=== PATIENT | male | born 1965 | race Caucasian/White ===

== ENCOUNTER 2021-07-18 12:19 | Inpatient (IN) ==
--- NOTE | 2021-07-18 13:05 | Emergency Department Note ---
Lower Extremity Injury HPI <Angeline Branham PA-C - Last Filed: 07/18/21 16:47> General Chief Complaint: Extremity Injury, Lower Stated Complaint: hip pain Time Seen by Provider: 07/18/21 12:38 Source: patient Mode of arrival: wheelchair History of Present Illness HPI Narrative: 55-year-old male presents from minor care for left hip pain after he fell on ice on Sunday. Had an x-ray of the left hip today that shows a left displaced femoral neck fracture. Patient has been walking on the hip for the last 3 days, but it became so painful today that he can no longer ambulate so came in for evaluation. Only medication tried for pain is his pregabalin, which he takes for chronic low back pain. Longtime smoker, 1 pack/day. Not on other medications. No other significant medical history. Last oral intake was 10 AM. Related Data Home Medications Medication Instructions Recorded Confirmed acetaminophen 500 mg tablet 500 mg PO Q6H PRN 04/23/20 07/18/21 (Tylenol Extra Strength) ibuprofen 200 mg capsule 200 mg PO Q6H PRN 04/23/20 07/18/21 Previous Rx's Medication Instructions Recorded pregabalin 150 mg capsule (Lyrica) 150 mg PO BID #180 cap 12/02/20 Allergies Allergy/AdvReac Type Severity Reaction Status Date / Time No Known Drug Allergies Allergy Verified 07/18/21 12:23 Review of Systems <Angeline Branham PA-C - Last Filed: 07/18/21 16:47> ROS ROS Narrative: Narrative: All systems ED: reviewed and negative except as stated. PFSH <Angeline Branham PA-C - Last Filed: 07/18/21 16:47> Narrative Patient History Narrative: Narrative: Medical/Surgical/Family History All Active Problems (Updated 07/18/21 @ 14:13 by Angeline Branham PA-C) Fracture of left hip (Acute) Left hip pain (Acute) Pain of left great toe (Acute) History of surgery (Chronic) Chronic pain (Chronic) Radiculopathy, lumbar region (Chronic) Radiculopathy, lumbosacral region (Chronic) Medical History Chronic pain Pain of left great toe Radiculopathy, lumbar region Radiculopathy, lumbosacral region Surgical History History of surgery TF MANDY #3 Lt. S2 w/o sed 02/05/19 TF MANDY #2 Lt. S1 w/o sed 01/08/2019 LESI #1 L5-S1 w/o sed 12/24/2018 Family History Other No pertinent family history Social History Smoking Status: Current every day smoker Exam <Angeline Branham PA-C - Last Filed: 07/18/21 16:47> Narrative Narrative: General: AOx3, NAD, nontoxic appearing. Pleasant and conversant. HEENT: PERRL, EOMI, normocephalic. Moist mucous membranes. Chest: Symmetric Respiratory: Lungs clear to auscultation bilaterally. No respiratory distress. Unlabored breathing. Heart: Regular rate and rhythm, no murmurs/clicks/rubs. Abdomen: Non-tender, Non distended Extremities: Warm and well perfused. No edema. DP 2+ bilaterally. No venous stasis. Neuro: No focal deficits. Cranial nerves II-XII grossly normal. Moving all fours spontaneously. He is sensate throughout the bilateral lower extremities in all nerve distributions. Skin: Warm dry, no rashes or lesions, no cyanosis. Psych: Normal mood and affect Heme/Lymph: No abnormal bruising Course <Angeline Branham PA-C - Last Filed: 07/18/21 16:47> Course Course Narrative: 55-year-old male presents with a displaced femoral neck fracture Reevaluation(s) Reevaluation #1: CBC, Chem-8, Covid swab Reevaluation #2: Covid swab was positive. Patient is asymptomatic. Not hypoxic satting at 98% on room air. Vital Signs Vital signs: Vital Signs Temperature 99.0 F 07/18/21 12:20 Pulse Rate 94 H 07/18/21 12:20 Respiratory Rate 16 07/18/21 12:20 Blood Pressure 143/84 07/18/21 12:20 Pulse Oximetry (%) 99 07/18/21 12:20 Temperature 98.3 F 07/19/21 03:36 Pulse Rate 72 07/19/21 03:36 Respiratory Rate 16 07/19/21 03:36 Blood Pressure 123/77 07/19/21 03:36 Pulse Oximetry (%) 97 07/19/21 03:36 MDM <Angeline Branham PA-C - Last Filed: 07/18/21 16:47> MDM Narrative Medical decision making narrative: Left femoral neck fracture COVID-19 infection I discussed the case with Dr. Yañez who will take the patient for surgery this afternoon. Patient will need to be admitted under Covid precautions given that h is screening was positive today. Disposition will be inpatient admission. Lab Data Result diagrams: 07/18/21 13:12 Labs: Lab Results 07/18/21 07/18/21 Range/Units 13:12 13:12 WBC 11.7 H (4.5-11.0) K/mcL RBC 3.36 L (4.63-6.08) M/mcL Hgb 12.2 L (13.7-17.5) g/dL Hct 35.1 L (40.1-51.0) % POC Hct 36 L (41-55) % MCV 104.5 H (80.0-100.0) fL MCH 36.3 H (26.0-34.0) pg MCHC 34.8 (31.0-36.0) g/dL RDW 12.8 (11.5-14.5) % Plt Count 218 (140-440) K/mcL MPV 10.1 (7.4-10.4) fL Neut % (Auto) 76.5 (38.0-78.0) % Lymph % (Auto) 13.2 L (15.5-49.0) % [place] % (Auto) 9.1 (1.0-12.0) % Eos % (Auto) 0.9 (0.0-7.0) % Baso % (Auto) 0.3 (0.0-2.0) % Lymph # (Auto) 1.54 (1.50-4.80) K/mcL Oldham # (Auto) 1.06 H (0.10-0.90) K/mcL Eos # (Auto) 0.10 (0.00-0.70) K/mcL Baso # (Auto) 0.03 (0.00-0.30) K/mcL Absolute Neutrophils 8.94 H (1.80-8.00) K/mcL POC Sodium 136 (133-145) mEq/L POC Potassium 3.4 (3.3-5.1) mEql/L POC Chloride 102 (96-108) mEq/L POC Total CO2 21 L (22-30) mmol/L POC BUN 7 (6-20) mg/dL POC Creatinine 0.5 L (0.6-1.2) mg/dL POC Glucose 89 (70-105) mg/dL POC WB Ioniz Calcium 1.11 L (1.16-1.32) mmEq/L ED POC Tests ED POC Tests: PRIYA - Influenza A Negative PRIYA - Influenza B Negative PRIYA - SARS Antigen Positive Discharge Plan Patient/Caregiver Discharge Instructions Pt seen by AIRCRAFT LOAD CONTROLLER/PA only: Yes Clinical Impression: Fracture of left hip Patient Disposition: Xfer As Inpt ([facility]) Discharge Date/Time: 07/18/21 15:38
[2021-07-18] MEDS ORDERED: KETOROLAC 30 MG/ML VIAL IV ONE (13:09)
[2021-07-18] MEDS ORDERED: ACETAMINOPHEN 1,000 MG/100 ML BAG IV ONE (13:09)
[2021-07-18 13:23] LABS: POC Blood Urea Nitrogen 7 mg/dL (6-20); POC CO2 21 mmol/L (22-30); POC Calcium, Ionized 1.11 mmEq/L (1.16-1.32); POC Chloride 102 mEq/L (96-108); POC Creatinine 0.5 mg/dL (0.6-1.2); POC Glucose, Random 89 mg/dL (70-105); POC Hematocrit 36 % (41-55); POC Potassium 3.4 mEql/L (3.3-5.1); POC Sodium 136 mEq/L (133-145)
[2021-07-18] MEDS ORDERED: METHOCARBAMOL 1,000 MG/10 ML VIAL IV PRN (14:39)
[2021-07-18] MEDS ORDERED: FLEETS ADULT ENEMA PR PRN (14:39)
[2021-07-18] MEDS ORDERED: POLYETHYLENE GLYCOL 3350 17 GM PACKET PO PRN (14:39)
[2021-07-18] MEDS ORDERED: BENZOCAINE/MENTHOL 1 LOZENGE PO PRN (14:39)
[2021-07-18] MEDS ORDERED: BISACODYL 10 MG SUPP.RECT PR PRN (14:39)
[2021-07-18] MEDS ORDERED: morphine 4 MG/ML VIAL IV PRN (14:39)
[2021-07-18] MEDS ORDERED: MAGNESIUM HYDROXIDE 30 ML ORAL.SUSP PO PRN (14:39)
--- NOTE | 2021-07-18 15:22 | History and Physical Report ---
DATE OF ADMISSION: 07/18/2021 REASON FOR CONSULTATION: Left hip fracture. CONSULTING PROVIDER: [facility] ER provider, Angeline Ariza NP. HISTORY OF PRESENT ILLNESS: Patient is a 55-year-old male who fell on his porch on Sunday. He had significant hip pain at that time. However, he was able to modify activity until Sunday when he returned to work. He had significant increase in pain at that time and this morning he has been unable to ambulate and presented to urgent care for evaluation. He was found to have a hip fracture and was transferred to [facility] ER for further evaluation and treatment. Orthopedics was consulted. He only complains of left hip pain. 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 PAST SURGICAL HISTORY: Unremarkable. PAST MEDICAL HISTORY: None. ALLERGIES: No known drug allergies. MEDICATIONS: He takes gabapentin on a daily basis for the radiculopathy. SOCIAL HISTORY: The patient is a tobacco user, approximately one-pack per day. Otherwise, none listed. He does reside with his girlfriend. REVIEW OF SYSTEMS: A 10-point review of systems is otherwise negative other than mentioned above. PHYSICAL EXAMINATION: VITALS: Patient is afebrile with a temperature of 99. Blood pressure is 130s over 80s. He is satting in the upper 90s on room air. Heart rate in the 80s. GENERAL: Patient is alert and oriented. He acts appropriately in no acute distress. EXTREMITIES: Bilateral upper extremities are atraumatic. Right lower extremity- atraumatic Left left lower extremity skin is intact with some tenderness over the lateral aspect of the hip itself. The foot is a bit shortened; however, minimal. He does not have significant external rotation. Range of motion deferred secondary to obvious fracture. No joint effusion about the knee itself. Foot is warm and well perfused with sensation intact. IMAGING: He has plain radiographs demonstrating a displaced femoral neck fracture. LABORATORY DATA: Glucose 89, creatinine 0.5. Hematocrit is 36 with a pending CBC. He also has a COVID-19 test which is positive. This was the quick test. Additional study pending. ASSESSMENT AND PLAN: This is a 55-year-old male with a tobacco use history with a left displaced femoral neck fracture, subacute in nature. I discussed the diagnosis with him and discussed treatment options. Given the chronicity of it, I do think that he is a high risk for AVN of the femoral head. The tobacco use does increasing his risk as well. I had initially discussed that if this did occur today, I would consider operative intervention with open reduciton internal fixaiton since if healed would likely provide the best oucome. However, given that this is several days old now, I think the least risky surgery would be the total hip arthroplasty. I discussed what this entails and the postoperative expectation and recovery process. I discussed the option of open reduction and internal fixation and the risks associated with that. After further discussion, he is okay to proceed with total hip arthroplasty. I discussed the potential for leg length difference, dislocations as well as paresthesias to the extremity which he already has at baseline. These are in addition to risk of infection, bleeding, blood clots, cardiopulmonary complications as well. He understands and agrees to proceed. The plan will be for a left anterior total hip arthroplasty. He will be admitted until surgery which looks to be planned for tomorrow. NPO at midnight. DLDina:avani Job ID: [id number] Doc ID: [id number] Ingris Yañez MD MTDD
--- NOTE | 2021-07-18 15:30 | XRay Report ---
HISTORY: Tested positive for COVID FINDINGS: Lungs are clear and well-expanded, without evidence of pneumonia. There is no adenopathy or pleural effusion. The heart size, mediastinum and liliana are normal. IMPRESSION: Normal exam Interpreted and Authenticated by: Steve Ureña 07/18/21
[2021-07-18 15:33] LABS: Basophils # (Auto) 0.03 K/mcL (0.00-0.30); Basophils % (Auto) 0.3 % (0.0-2.0); Eosinophils % (Auto) 0.9 % (0.0-7.0); Hematocrit 35.1 % (40.1-51.0); Hemoglobin 12.2 g/dL (13.7-17.5); Lymphocytes # (Auto) 1.54 K/mcL (1.50-4.80); Lymphocytes % (Auto) 13.2 % (15.5-49.0); Mean Cell Volume 104.5 fL (80.0-100.0); Mean Corpuscular HGB Conc 34.8 g/dL (31.0-36.0); Mean Platelet Volume 10.1 fL (7.4-10.4); Monocytes # (Auto) 1.06 K/mcL (0.10-0.90); Monocytes % (Auto) 9.1 % (1.0-12.0); Neutrophils % (Auto) 76.5 % (38.0-78.0); Platelet Count 218 K/mcL (140-440); RBC 3.36 M/mcL (4.63-6.08); Red Cell Distribution Width 12.8 % (11.5-14.5); WBC 11.7 K/mcL (4.5-11.0)
[2021-07-18] MEDS: oxyCODONE/APAP 5/325MG TABLET PO PRN ×3 (16:13→23:40)
[2021-07-18] MEDS: PREGABALIN 150 MG CAPSULE PO SCH (19:27)
[2021-07-18] MEDS: DOCUSATE SODIUM 100 MG CAPSULE PO SCH (19:27)
[2021-07-18] MEDS ORDERED: ENOXAPARIN 40 MG/0.4 ML SYRINGE SQ ONE (21:19)
[2021-07-18] MEDS: DEXTROSE 5%-1/2NS 1,000 ML IV SCH (23:30)
[2021-07-18] MEDS: 0.9 % SODIUM CHLORIDE 10 ML SYRINGE IV SCH (23:30)
[2021-07-19] MEDS: 0.9 % SODIUM CHLORIDE 10 ML SYRINGE IV SCH ×3 (04:04→21:40)
[2021-07-19] MEDS ORDERED: ceFAZolin 2 GM in DEXTROSE 5% IN WATER 50 ML IV SCH (06:00)
[2021-07-19] MEDS: DOCUSATE SODIUM 100 MG CAPSULE PO SCH ×2 (09:37→21:37)
[2021-07-19] MEDS ORDERED: FLU VACC QS2021-22(6MOS UP)/PF 60 MCG/0.5 ML SYRINGE IM ONE (10:00)
[2021-07-19] MEDS: DEXTROSE 5%-1/2NS 1,000 ML IV SCH ×2 (10:41→22:11)
[2021-07-19] MEDS ORDERED: SUGAMMADEX SODIUM 200 MG/2 ML VIAL IV ONE (14:25)
[2021-07-19] MEDS ORDERED: TRANEXAMIC ACID 1,000 MG/10 ML VIAL ONE (14:25)
[2021-07-19] MEDS ORDERED: fentaNYL 250 MCG/5 ML VIAL IV ONE (14:25)
[2021-07-19] MEDS ORDERED: DEXAMETHASONE 10 MG/ML VIAL ONE (14:25)
[2021-07-19] MEDS ORDERED: ONDANSETRON 4 MG/2 ML VIAL ONE (14:25)
[2021-07-19] MEDS ORDERED: LIDOCAINE W/EPI 2% 20 ML VIAL ONE (14:25)
[2021-07-19] MEDS ORDERED: PROPOFOL 200 MG/20 ML VIAL IV ONE (14:25)
[2021-07-19] MEDS ORDERED: ROPIVACAINE HCL/PF 20 ML VIAL IJ ONE (14:25)
[2021-07-19] MEDS ORDERED: MAGNESIUM SULFATE 2 GM/50 ML BAG IV ONE (14:25)
[2021-07-19] MEDS ORDERED: LIDOCAINE HCL/PF 100 MG/5 ML SYRINGE IV ONE (14:25)
[2021-07-19] MEDS ORDERED: MIDAZOLAM 2 MG/2 ML VIAL ONE (14:25)
[2021-07-19] MEDS ORDERED: KETAMINE 50 MG/ML Syringe (ANEST) IV ONE (14:25)
[2021-07-19] MEDS ORDERED: ROCURONIUM 10 MG/ML ML IV ONE (14:25)
[2021-07-19] MEDS ORDERED: VANCOMYCIN 1 GM VIAL TOPICAL ONE (15:15)
[2021-07-19] MEDS ORDERED: HYDROmorphone 0.5 MG/0.5 ML SYRINGE IV PRN (16:48)
[2021-07-19] MEDS ORDERED: MEPERIDINE 50 MG/ML VIAL IM PRN (16:48)
[2021-07-19] MEDS ORDERED: ONDANSETRON 4 MG/2 ML VIAL IV PRN (16:48)
[2021-07-19] MEDS ORDERED: ACETAMINOPHEN 1,000 MG/100 ML BAG IV ONE (16:48)
[2021-07-19] MEDS ORDERED: PROMETHAZINE 25 MG/ML VIAL IV PRN (16:48)
[2021-07-19] MEDS ORDERED: MEPERIDINE 25 MG/ML VIAL IV PRN (16:48)
[2021-07-19] MEDS ORDERED: IPRATROPIUM/ALBUTEROL 3 ML AMPUL.NEB NEB PRN (16:48)
[2021-07-19] MEDS ORDERED: LACTATED RINGERS 250 ML IV PRN (16:48)
[2021-07-19] MEDS ORDERED: PROMETHAZINE 25 MG/ML VIAL IM PRN (16:48)
[2021-07-19] MEDS ORDERED: BENZOCAINE/MENTHOL 1 LOZENGE PO PRN (16:48)
[2021-07-19] MEDS ORDERED: METHOCARBAMOL 1,000 MG/10 ML VIAL IV PRN (16:48)
[2021-07-19] MEDS ORDERED: NALOXONE HCL 0.4 MG/ML VIAL IV PRN (16:48)
[2021-07-19] MEDS ORDERED: LABETALOL 5 MG/ML ML IV PRN (16:48)
[2021-07-19] MEDS ORDERED: LACTATED RINGERS 1,000 ML IV SCH (17:00)
[2021-07-19] MEDS ORDERED: TRANEXAMIC ACID 1,000 MG/10 ML VIAL IV SCH (17:05)
--- NOTE | 2021-07-19 17:05 | Brief Operative Note ---
Brief Operative Note Date of procedure: 07/19/21 Pre-op diagnosis: left displaced femoral neck fracture subacute Post-op diagnosis: same Procedure: left anterior total hip arthroplasty Grafts/Implants: Yes Anesthesia: GETA Findings: displaced femoral neck fracture Complications: none Surgeon: Ingris Yañez Real Estate Agent/Broker: Eder Panchal Estimated blood loss (cc): 200 Tourniquet Time (Minutes): 0 Specimens Removed/Pathology: none sent Condition: stable Disposition: PACU
--- NOTE | 2021-07-19 17:07 | XRay Report ---
HISTORY: FINDINGS: IMPRESSION: 0.7 minutes of fluoroscopy time was used Interpreted and Authenticated by: Steve Ureña 07/19/21
[2021-07-19] MEDS ORDERED: METHOCARBAMOL 500 MG TABLET PO PRN (17:13)
[2021-07-19] MEDS: fentaNYL 100 MCG/2 ML VIAL IV PRN ×4 (17:44→18:09)
--- NOTE | 2021-07-19 18:15 | XRay Report ---
HISTORY: Postop left hip arthroplasty, for acute left femoral neck fracture FINDINGS: There is a well-positioned left total hip prosthesis. No fracture or abnormal soft tissue calcification are present. IMPRESSION: Normal exam following insertion of a left hip prosthesis Interpreted and Authenticated by: Steve Ureña 07/19/21
[2021-07-19] MEDS: LACTATED RINGERS 1,000 ML IV SCH (18:39)
[2021-07-19] MEDS: oxyCODONE HCL 5 MG TABLET PO PRN (21:37)
[2021-07-19] MEDS: PREGABALIN 150 MG CAPSULE PO SCH (21:37)
[2021-07-19] MEDS: ceFAZolin 1 GM VIAL IV SCH (21:39)
[2021-07-20] MEDS: ACETAMINOPHEN 500 MG TABLET PO SCH ×2 (02:45→10:10)
[2021-07-20] MEDS: oxyCODONE HCL 5 MG TABLET PO PRN ×2 (02:46→09:10)
[2021-07-20] MEDS: ceFAZolin 1 GM VIAL IV SCH (06:15)
[2021-07-20] MEDS: DEXTROSE 5%-1/2NS 1,000 ML IV SCH (06:16)
[2021-07-20] MEDS: 0.9 % SODIUM CHLORIDE 10 ML SYRINGE IV SCH (06:16)
--- NOTE | 2021-07-20 06:43 | Orthopedic Progress Note ---
SUBJECTIVE Subjective Patient information: Note initiated : 07/20/21 at 6:40 am Service Date, if different from initiated Date: [] Patient: Kyle Ramirez 55 y/o M admitted on 07/18/21 for hip pain. Chief Complaint: [No new issues overnight. pain controlled. not out of bed yet. tolerating oral diet.] Constitutional Vitals: Vital Signs Temp Pulse Resp BP Pulse Ox 98.1 F 96 H 16 122/73 96 07/20/21 04:53 07/20/21 04:53 07/20/21 04:53 07/20/21 04:53 07/20/21 04:53 Period Temp Pulse Resp BP Sys/Franz Pulse Ox Last 24 Hr 97.5 F-98.2 F 73-104 12-16 115-143/71-89 95-99 Intake and Output 07/19/21 07/20/21 07/20/21 21:59 05:59 13:59 Intake Total 1150 600 Output Total 700 900 Balance 450 -300 Weight 195 lb 8 oz Intake & Output: Intake & Output 07/19/21 07/20/21 07/20/21 21:59 05:59 13:59 Intake Total 1150 600 Output Total 700 900 Balance 450 -300 Weight 195 lb 8 oz Intake: IV 1150 Dextrose 5%-1/2Ns IV Solution 1 1000 ,000 ml @ 100 mls/hr IV .Q10H [facility] Rx#:[id number] Ancef 2 gm In Dextrose 5% in 50 Water 50 ml @ 100 mls/hr IV PREOP PATRICIA Rx#:[id number] Oral 600 Output: Void Amount 700 900 Other: Meal Tuna sandwich, crackers Percent of Meal Consumed 100% Feeding Ability Independent Urine Appearance Clear Clear Urine Color Bright Yellow Bright Yellow Additional findings Additional findings: general: alert and oriented left hip: dressing clean dry and intact. foot warm well perfused. OBJ DATA Labs CBC & Chem 7: 07/18/21 13:12 Labs: Abnormal Lab Results 07/18/21 07/18/21 13:12 13:12 WBC 11.7 H RBC 3.36 L Hgb 12.2 L Hct 35.1 L POC Hct 36 L MCV 104.5 H MCH 36.3 H Lymph % (Auto) 13.2 L Davis # (Auto) 1.06 H Absolute Neutrophils 8.94 H POC Total CO2 21 L POC Creatinine 0.5 L POC WB Ioniz Calcium 1.11 L Meds: Medications Acetaminophen (Acetaminophen 500 Mg Tablet) 1,000 mg PO Q8H [facility]; Protocol Last Admin: 07/20/21 02:45 Dose: 1,000 mg Documented by: Bisacodyl (Bisacodyl 10 Mg Supp.Rect) 10 mg ID Q2-3DAYS PRN PRN Reason: Constipation Docusate Sodium (Docusate Sodium 100 Mg Capsule) 100 mg PO BID [facility] Last Admin: 07/19/21 21:37 Dose: 100 mg Documented by: Enoxaparin Sodium (Enoxaparin 40 Mg/0.4 Ml Syringe) 40 mg SQ DAILY [facility] Dextrose/Sodium Chloride (Dextrose 5%-1/2ns Iv Solution) 1,000 mls @ 100 mls/hr IV .Q10H [facility] Last Admin: 07/20/21 06:16 Dose: Not Given Documented by: Lactated Ringer's (Lactated Ringers) 1,000 mls @ 75 mls/hr IV .[id number] [facility] Last Admin: 07/19/21 18:39 Dose: 75 mls/hr Documented by: Magnesium Hydroxide (Magnesium Hydroxide 30 Ml Oral.Susp) 30 ml PO BIDP PRN PRN Reason: Constipation Methocarbamol (Methocarbamol 1,000 Mg/10 Ml Vial) 750 mg IV Q6HP PRN PRN Reason: Muscle Spasm Methocarbamol (Methocarbamol 500 Mg Tablet) 500 mg PO Q6HP PRN PRN Reason: Muscle Spasm Morphine Sulfate (Morphine 4 Mg/Ml Vial) 2 - 4 mg IV Q2HP PRN; Protocol PRN Reason: Per Pain Protocol Oxycodone HCl (Oxycodone Hcl 5 Mg Tablet) 5 - 10 mg PO Q4HP PRN; Protocol PRN Reason: Per Pain Protocol Last Admin: 07/20/21 02:46 Dose: 10 mg Documented by: Polyethylene Glycol (Polyethylene Glycol 3350 17 Gm Packet) 17 gm PO DAILYP PRN PRN Reason: Constipation Pregabalin (Pregabalin 150 Mg Capsule) 150 mg PO HS [facility] Last Admin: 07/19/21 21:37 Dose: 150 mg Documented by: Sodium Biphosphate/Sodium Phosphate (Fleets Adult Enema) 1 dose ID Q3-4DAYS PRN PRN Reason: Constipation Sodium Chloride (0.9 % Sodium Chloride 10 Ml Syringe) 10 ml IV Q8 [facility] Last Admin: 07/20/21 06:16 Dose: 10 ml Documented by: Throat Lozenges (Benzocaine/Menthol 1 Lozenge) 1 lozenge PO PRN PRN PRN Reason: Sore Throat A/P Assessment and plan (1) Fracture of left hip: Assessment and plan: POD 1 s/p left anterior total hip arthroplasty for femoral neck fracture: subacute - pt/ot today. WBAT - oral pain medications - regular diet - home medications - prophy: IS, lovenox, foot pumps, mobilization - dispo; possible home today Status: Acute Time Spent With Patient Time: Total time spent is greater than 50% in coordination of care (as documented) at patient's floor/unit and/or counseling patient:
--- NOTE | 2021-07-20 06:56 | Discharge Summary ---
Discharge Provider Provider Patient information: Note initiated : 07/20/21 at 6:51 am Service Date, if different from initiated Date: [] Patient: Kyle Ramirez 55 y/o M admitted on 07/18/21 for hip pain. Chief Complaint: [left displaced femoral neck fracture] Date of admission: 07/18/21 15:38 Discharge date: 07/20/21 Primary care physician: Cristy Corrales Admitting clinician: Ingris Yañez Attending physician on admission: Ingris Yañez Consults: 07/18/21 13:04 Consult to Physician [CONS] Stat Comment: Consulting Provider: Ingris Yañez Reason For Exam: Physician to Consult Attending physician on discharge: Ingris Yañez Discharging clinician: Ingris Yañez COURSE Hospital Course Hospital course: Admitted on for left hip fracture. Proceeded with surgery consisting of an anterior total left hip arthroplasty. Admitted back to the floor in stable condition. Stay was uneventful and was hemodynamically stable. Worked with formal physical therapy. Pain was controlled. Tolerated an oral diet. Able to void spontaneously. Did test positive for covid on admit- was asymptomatic from this standpoint. Discharge diagnosis: left femoral neck fracture: subacute Secondary discharge diagnosis: covid Reason for admission: left hip fracture Procedures: left anterior total hip arthroplasty Pertinent studies/significant findings: x-rays: femoral neck fracture Covid test- positive Complications: none Time spent discussing smoking cessation with patient: 3 to 10 minutes Time Spent with Patient Time attestation: Total time spent providing and/or coordinating discharge services: Time spent: Greater than 30 minutes Specific discharge activities: weight bearing as tolerated. Use walker as needed Physical Examination Exam Incision healing: Yes Incision draining: No Incision red: No Incision swollen: Yes Incision inflamed: No Clean and dry: Yes Weight bearing status: full Discharge Instructions - KANIKA Patient Instructions Total Hip Protocol: Follow activity instructions as provided by Physical Therapy. Dressing Care: Other Additional Dressing Instructions: -weight bearing as tolerated- use a walker or crutches as needed -the silver dressing on your hip is ok to get wet. Ok to shower with it in place. Do not remove until your follow up appointment. If the edges wrinkle and water gets under the dressing, remove the dressing and replace with dry gauze (stop getting the incision wet if this happens). -Start physical therapy: sooner the better. Until then, work on tightening and relaxing your thigh muscles. Tighten your thigh muscles and lift your leg. Work on moving your ankle up and down. Work on bending your knee and straightening your knee. Tighten and relax your butt muscles. Walk at least once an hour while awake -Ice your hip for 20 minutes every 3-4 hours throughout the day -Lovenox for 30 days to help prevent blood clots -Continue to your NSAID as needed. -Oxycodone is the narcotic pain medication which to be taken as needed. Meaning only take it if the other pain medications are not sufficient in controlling your pain. -Robaxin is a muslce relaxer- take as needed -Docusate/miralax is a stool softner to help with constipation Discharge Plan Patient/Caregiver Discharge Instructions Activity: ambulate only with your walker Diet: Regular Diet Activity Restrictions/Additional Instructions: -weight bearing as tolerated- use a walker or crutches as needed -the silver dressing on your hip is ok to get wet. Ok to shower with it in place. Do not remove until your follow up appointment. If the edges wrinkle and water gets under the dressing, remove the dressing and replace with dry gauze (stop getting the incision wet if this happens). -Start physical therapy: sooner the better. Until then, work on tightening and relaxing your thigh muscles. Tighten your thigh muscles and lift your leg. Work on moving your ankle up and down. Work on bending your knee and straightening your knee. Tighten and relax your butt muscles. Walk at least once an hour while awake -Ice your hip for 20 minutes every 3-4 hours throughout the day -Lovenox for 30 days to help prevent blood clots -Continue to your NSAID as needed. -Oxycodone is the narcotic pain medication which to be taken as needed. Meaning only take it if the other pain medications are not sufficient in controlling your pain. -Robaxin is a muslce relaxer- take as needed -Docusate/miralax is a stool softner to help with constipation Prescriptions: New docusate sodium 100 mg Capsule 100 mg PO BID Qty: 60 0RF methocarbamol 500 mg Tablet 500 mg PO Q6HP PRN (Reason: Muscle Spasm) Qty: 20 0RF oxycodone 5 mg Tablet 5 - 10 mg PO Q4HP PRN (Reason: Per Pain Protocol) Qty: 60 0RF enoxaparin [Lovenox] 40 mg/0.4 mL Syringe 40 mg SQ DAILY 30 Days 0RF Continued pregabalin [Lyrica] 150 mg capsule 150 mg PO BID Qty: 180 3RF acetaminophen [Tylenol Extra Strength] 500 mg tablet 500 mg PO Q6H PRN (Reason: Mild Pain (Scale Score 1-4)) 0RF ibuprofen 200 mg capsule 200 mg PO Q6H PRN (Reason: Pain, Mild) 0RF Other Ambulatory Orders: Physical Therapy at Discharge - KANIKA (Routine) Location: None Selected Ordered By: Ingris Cummings (ONCE) Location: None Selected Ordered By: Ingris Yañez Follow Up Plan Follow up with: Cristy Corrales ARNP [Primary Care Provider] - Eder Panchal PA-C [Physician Date Puller] - (10-13 days for post op.) Patient Disposition: Home, Self-Care Rehab Potential: Good I certify that the patient requires SNF services: No Overall status at discharge: patient is progressing back to baseline Discharge Orders: Discharge Order (Routine); Ordered 07/20/21 Ordered By: Ingris Yañez Discharge Comment: please provide lovenox teaching prior to discharge Pending Pending Pending: Resuscitation Status Resuscitate (Full Code) Diet Regular Diet Start SunJul 19 1711 Acetaminophen (Acetaminophen 500 Mg Tablet) 1,000 mg PO Q8H [facility]; Protocol Last Admin: 07/20/21 02:45 Dose: 1,000 mg Documented by: MIKA Docusate Sodium (Docusate Sodium 100 Mg Capsule) 100 mg PO BID [facility] Last Admin: 07/19/21 21:37 Dose: 100 mg Documented by: Admin: 07/19/21 09:37 Dose: Not Given Documented by: Admin: 07/18/21 19:27 Dose: 100 mg Documented by: SHAUNNA Dextrose/Sodium Chloride (Dextrose 5%-1/2ns Iv Solution) 1,000 mls @ 100 mls/hr IV .Q10H [facility] Last Admin: 07/20/21 06:16 Dose: Not Given Documented by: Admin: 07/19/21 22:11 Dose: Not Given Documented by: Infusion: 07/19/21 17:53 Dose: 0 mls/hr Documented by: Admin: 07/19/21 10:41 Dose: 100 mls/hr Documented by: Infusion: 07/19/21 09:30 Dose: 100 mls/hr Documented by: Admin: 07/18/21 23:30 Dose: 100 mls/hr Documented by: SHAUNNA Lactated Ringer's (Lactated Ringers) 1,000 mls @ 75 mls/hr IV .[id number] [facility] Last Admin: 07/19/21 18:39 Dose: 75 mls/hr Documented by: MIKA Oxycodone HCl (Oxycodone Hcl 5 Mg Tablet) 5 - 10 mg PO Q4HP PRN; Protocol PRN Reason: Per Pain Protocol Last Admin: 07/20/21 02:46 Dose: 10 mg Documented by: Admin: 07/19/21 21:37 Dose: 5 mg Documented by: MIKA Pregabalin (Pregabalin 150 Mg Capsule) 150 mg PO HS [facility] Last Admin: 07/19/21 21:37 Dose: 150 mg Documented by: Admin: 07/18/21 19:27 Dose: 150 mg Documented by: SHAUNNA Sodium Chloride (0.9 % Sodium Chloride 10 Ml Syringe) 10 ml IV Q8 [facility] Last Admin: 07/20/21 06:16 Dose: 10 ml Documented by: Admin: 07/19/21 21:40 Dose: Not Given Documented by: MIKA Shift Summary 07/20/21 05:16 Shift Summary by Bailey Leung Primary Diagnosis: left hip fx, POD1 KANIKA, Covid positive Registration Status: Day of Hospitalization: 07/18/21 Date of Surgery (if applicable): 07/19/21, got to unit during change of shift Pertinent Medical Dx/Issues (may be more than one): chronic back pain, Covid positive Interventions (O2, wounds, diuresis, etc): Silver dressing to left hip CDI, ice applied Vital Signs with Trends: VSS on RA Meds (abo, pain, BP, etc): Oxycodone 5-10 prn, gave 5 mg first with minimal response, gave 10 mg for second dose at 0246 IV access: 18 GA RW LR at 75, SL with good PO Oxygen needs (home use vs. current use): RA Date of last BM: Elimination: Urinal Recommendations/questions for MD (DC Robertson? DC CM? PICC needed?): Trends (is the patient improving?): Activity: moves well in bed with turning and repositioning, not OOB yet Expected date of discharge: TBD Discharge Plan (needs, disposition, etc): Per case management note, pt lives alone but has a SO that will be his transportation and can stay with him and help. Initialized on 07/20/21 05:16 - END OF NOTE
[2021-07-20] MEDS: LACTATED RINGERS 1,000 ML IV SCH (07:38)
--- NOTE | 2021-07-20 08:59 | Operative Note ---
DATE OF OPERATION: 07/19/2021 PREOPERATIVE DIAGNOSIS: Displaced left femoral neck fracture, subacute. POSTOPERATIVE DIAGNOSIS: Displaced left femoral neck fracture, subacute. PROCEDURE PERFORMED: Left anterior total hip arthroplasty. SURGEON: Ingris Yañez M.D. HELMET HAT BRIM CUTTER: Eder Panchal PA-C. The PA's assistance was required for the safe and efficient completion of the entire case. This provider's expertise and technical skill were required throughout the case. The PA assisted with preoperative coordination, intraoperative retraction, wound closure, dressing and splint application, as well as postoperative documentation and care coordination. ANESTHESIA: General. INTRAVENOUS FLUIDS: 1200 mL of lactated Ringer's. ESTIMATED BLOOD LOSS: 200 mL. TOURNIQUET TIME: Not applicable. ANTIBIOTICS: 2 grams Ancef. IMPLANTS: DePuy ACTIS size 7 femoral stem high-offset with a 36 mm +1.5 ceramic head, a 54 cup with a neutral liner with one screw. INTRAOPERATIVE COMPLICATIONS: None apparent. PATHOLOGY/LAB: None. INDICATIONS FOR PROCEDURE: The patient is a 55-year-old male who Sunday fell on his porch and had left hip pain; however, he was not working, thus he was able to modify his activities at home and tolerated until Sunday when he had to work. He had increased pain and by Sunday unable to ambulate and presented to the ER for further evaluation and treatment. He was found to have a displaced femoral neck fracture. Given the chronicity of it, my recommendation was for operative treatment via total hip arthoplasty. Discussed AVN as a high risk given the duration that it has been since fracture, and I do think that total hip arthroplasty would be in his best interest and more of a definitive treatment plan. I did discuss the risks of surgery and expectations and recovery process, he elected to proceed. DESCRIPTION OF PROCEDURE: Patient was met in the preoperative holding area where site was verified and marked with the patient's input. He was then taken back to the operating room where he underwent successful anesthesia. He was placed on the [place] table with a padded perineal post. Bilateral lower extremities were placed into padded boots. The left hip radiographs were taken, including a perfect AP of the pelvis as well as of the contralateral hip for templating purposes as well as the operative hip. He was then prepped and draped in the usual sterile fashion with ChloraPrep. Surgical timeout was performed to verify patient's identity, correct procedure being performed, and correct extremity being operated on. Everybody was in agreement. Skin incision was made 2 fingerbreadths distal and lateral to the ASIS for approximately 7 cm. Skin was sharply incised. Dissection was taken down to the tensor fasciae latae fascia. Our pockets were created for our self-retaining retractor. I did get hemostasis with electrocautery device. Once the retractor was placed, the tensor fascia was incised with a clean 15 blade. This was peeled off and this was dissected down to the femoral neck. We placed a lighted Cobra retractor over the superior aspect of the femoral neck and then localized the traversing lateral circumflex vessels and these were cauterized with a Aquamantys device and then a Cobra retractor was placed over the medial neck. Superiorly, we did elevate it off the rectus and iliocapsularis and placed a sharp bent Hohmann over the top of the acetabulum. The capsule was incised down the midline and T'd at the intertrochanteric line. Cobra retractor was placed inside of this. The fracture was easily identified. We released the capsule off the posterior inferior aspect as well as over to the lateral aspect of the greater trochanter. At this time, I did place a corkscrew device within the femoral head and then utilized the C-arm to make our femoral neck cut, which was templated approximately 16 mm. This was made. The head was removed. One retractor was placed over the anterior and posterior cortex over the acetabular rim as well as over the superior rim. The labrum was removed and a size 45 reamer was utilized to medialize the acetabulum to the tear drop itself. This was upsized until we got to good cancellous bleeding bone near circumferentially, which was a size 53 reamer. We trialed a 53, which had some stick, but not overly aggressive. Given this and good overall bleeding, I elected to proceed and keep the 54 mm cup. This was impacted and placed one screw for assurance. The manhole cover was placed as well. At this point, a liner was placed and ensured it was seated and our attention was placed to the femur. We placed a Hope retractor along the medial calcar and an S-retractor over the greater trochanter. I did create a rent through the capsule in order to place this retractor. I did place a Ray-Romeo to protect the tensor fascia muscle itself. With circumferential release of the capsule, the femur did elevate and were able to gain access into the canal. Utilizing our box car loader, canal finder, pigtail rasp, and the initial broach handle we incised up to a size 7 with good rotational control of the femur. I did place a high-offset stem and a standard 36 mm head, 1.5. This was reduced and overall offset was essentially symmetric to the contralateral side and length overall was just a few millimeters long. I elected to keep this construct. The implant was countersunk another millimeter or so and then calcar planed. The trial implants were removed. Final implants were press fit and placed our head ball and reduced the joint. Again, final radiographs were taken with good overall stability of the joint. The wound was copiously irrigated with 0.0035% Betadine solution and was soaked within the joint as well, then pulse lavaged this out and used IrriSept throughout the case as well. The capsule was closed with 0 Ethibond in an interrupted fashion. We placed 1 gram vancomycin powder deep in the wound and tensor fascia was closed with Vicryl in running fashion proximally and distally. The self-retaining retractor was removed. We irrigated again, and 2-0 Vicryl, 3-0 Vicryl, and running 3-0 Monocryl with anuja and Steris were used for closure of the subcutaneous layer. The thigh was then cleaned and dried. We placed a silver dressing. The patient awoke from anesthesia and was transferred to PACU in stable condition. POSTOPERATIVE PLAN: The patient will be admitted back to the floor and be weightbearing as tolerated. Hopefully, he will work with physical therapy and possible discharge home tomorrow. DLDina:avani Job ID: [id number] Doc ID: [id number] Ingris Yañez MD [facility] CENTERCheyanne
[2021-07-20] MEDS ORDERED: ENOXAPARIN 40 MG/0.4 ML SYRINGE SQ SCH (09:00)
[2021-07-20] MEDS ORDERED: FLU VACC QS2021-22(6MOS UP)/PF 60 MCG/0.5 ML SYRINGE IM ONE (10:00)
[2021-07-20] MEDS: DOCUSATE SODIUM 100 MG CAPSULE PO SCH (10:09)
--- NOTE | 2021-07-21 09:26 | EKG ---
[facility] Test Date: 2021-07-18 Pat Name: Kyle Raimrez Department: [facility] Room: 106 Gender: Male Rivet Sticker: duke : [id number] Requested By: Angeline Branham Order Number: [id number] Reading MD: Zeferino Woods Measurements Intervals [place] Rate: 82 P: -22 WV: 176 QRS: -35 QRSD: 106 T: 51 QT: 396 QTc: 463 Interpretive Statements Sinus rhythm Left axis deviation Electronically Signed On 07-21-2021 9:25:57 PST by Zeferino Woods /[id number]
== END 2021-07-20 09:50 | disposition home or self-care (01) | DRG 521 ==
LOC: ED 12:19 → MEDSUR 15:38
PROVIDERS: ADMIT Orthopaedic Surgery; ATTEND Orthopaedic Surgery